=== PATIENT | male | born 1965 | race Caucasian/White ===

== ENCOUNTER → 2016-08-31 | Outpatient (CLI) | payer BC ==
[~2016-08-31] VITALS: Ht 172.7 cm; Wt 86.2 kg
[~2016-08-31] MED LIST: CARISOPRODOL 3350 MG PO; CELEBREX 200 M200 MG PO; CHANTIX1 EACH PO; CHANTIX1 MG PO; DEPO-TESTO200 MG/1 M IM; FAMVIR500 MG PO; FISH OIL 1,001000 M2 PO; MEDROLDOSEPACK PO; MULTI-DAY VITA1 EACH PO; NEURONTIN 300300 M1 PO; OMEPRAZOLE40 MG PO; PREDNISONE 5 MG5 MG PO; PRILOSEC20 MG PO
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
[2016-08-31 14:20] VITALS: BP 147/93
== END ==
LOC: PAIN 07:25
DX: M47.22 Other spondylosis with radiculopathy, cervical region (principal); M96.1 Postlaminectomy syndrome, not elsewhere classified; Z87.891 Personal history of nicotine dependence

== ENCOUNTER → 2016-09-10 | Outpatient (CLI) | payer BC | LOC: MRI 06:42 | DX: M54.10 Radiculopathy, site unspecified (principal); M54.2 Cervicalgia ==

== ENCOUNTER → 2016-09-13 | Outpatient (CLI) | payer BC ==
[~2016-09-13] VITALS: Ht 175.3 cm; Wt 87.0 kg
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
[2016-09-13 09:35] VITALS: BP 129/85
== END | disposition home or self-care (01) ==
LOC: PAIN 07:08
DX: M54.12 Radiculopathy, cervical region (principal); M47.892 Other spondylosis, cervical region; M54.16 Radiculopathy, lumbar region; Z98.890 Other specified postprocedural states; Z87.891 Personal history of nicotine dependence

== ENCOUNTER → 2016-10-25 | Outpatient (CLI) | payer BC ==
[~2016-10-25] VITALS: Ht 175.3 cm; Wt 88.2 kg
--- NOTE | ~2016-10-25 | HPC ---
[facility] [address] [address] PAIN MANAGEMENT CONSULTATION Name: SOL BOWDEN Room #: REG CLMarcela Heredia#: [id number] Admission: 10/25/16 Attend Phys: Lonny Velasco, DO Discharge: Date of : 67 Report #: [id number] THIS REPORT FOR: //name// CC: Alex Velasco The patient is a very pleasant 50-year-old gentleman I have known for some time. We have treated him for lumbar radiculopathy status post decompressive laminectomy, cervical spondylosis, and now status post anterior cervical disk fusion C3, C4, C5, and C6. The patient was given a lumbar epidural injection on 08/31/2016 and cervical epidural injection on 09/13/2016. Returns to the pain clinic today noting both injections afforded good relief, still has significant pain right at midline, C7-T1 area, radiation into the right shoulder and arm. Remarkably good range of motion of the cervical spine considering the four level fusion. He has tight bilateral neural foraminal stenosis at the inferior aspect of the fusion. Fortunately, there should be no movement at this level. Does have ongoing radicular symptoms. We talked about therapeutic options today. We would like to repeat cervical epidural injection under fluoroscopy, if he requires further surgical intervention, would likely be a posterior decompression at this inferior aspect. Hopefully, we can avoid surgery. 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 We talked about managing symptoms get to this time point. He takes Celebrex 200 mg, unfortunately daily use does significantly exacerbate gastroesophageal reflux, so suggest using on a nondaily basis. ASSESSMENT: Symptomatic cervical radiculopathy. PROCEDURE: Cervical epidural injection under fluoroscopy. PROCEDURE NOTE: After written and informed consent was obtained including risk of dural puncture, spinal cord trauma, paralysis and increased pain, the patient was taken to the fluoroscopy suite and placed in the prone position, with appropriate abdominal bolstering, neck was flexed, palms under the thighs. Skin was prepped with ChloraPrep. Sterile draping was applied. Skin wheal with 1% Xylocaine was raised. A 22-gauge 3-1/2 inch epidural Tuohy needle was placed via a midline approach at the C7-T1 interspace, advanced under biplanar fluoroscopy using continuous loss of resistance. With appropriate loss of resistance at the expected depth on lateral view, the glass loss of resistance syringe was disconnected. A low volume extension tubing was connected to the needle and a 5 mL syringe. Negative aspiration for cerebrospinal fluid or blood was noted. A 1 mL of Omnipaque was injected which showed spread within the epidural space on biplanar fluoroscopy. This was followed with 80 mg of triamcinolone plus 1 mL of 1.5% preservative Xylocaine. Needle was withdrawn to the interspinous ligament, 0.5 mL of Xylocaine was used to flush the needle. The needle was then completely withdrawn. The area was cleansed. Band-Aid was [address] [address] PAIN MANAGEMENT CONSULTATION Name: SOL BOWDEN Room #: REG CLI Yan#: [id number] Admission: 10/25/16 Attend Phys: Lonny Velasco, DO Discharge: Date of : 67 Report #: [id number] applied. The patient was allowed to move off the procedure table and ambulated to the recovery room, monitored for an appropriate period of time, discharged in good and stable condition. <ELECTRONICALLY SIGNED> By: Lonny Velasco DO 10/26/16 0655 [id number] [id number] Lonny Velasco DO /nt
[2016-10-25 14:32] VITALS: BP 145/95
== END | disposition home or self-care (01) ==
LOC: PAIN 07:23
DX: M54.12 Radiculopathy, cervical region (principal); M54.16 Radiculopathy, lumbar region

== ENCOUNTER → 2017-02-01 | Outpatient (CLI) | payer BC ==
[~2017-02-01] VITALS: Ht 175.3 cm; Wt 83.5 kg
[~2017-02-01] MED LIST changes: +PREDNISONE 5 MG5 M1 PO
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
[2017-02-01 13:44] VITALS: BP 137/94
== END ==
LOC: PAIN 06:54
DX: M54.16 Radiculopathy, lumbar region (principal); M19.90 Unspecified osteoarthritis, unspecified site; K51.90 Ulcerative colitis, unspecified, without complications; M47.22 Other spondylosis with radiculopathy, cervical region; I10 Essential (primary) hypertension; Z87.891 Personal history of nicotine dependence

== ENCOUNTER → 2017-03-08 | Outpatient (CLI) | payer BC ==
[~2017-03-08] VITALS: Ht 175.3 cm; Wt 84.6 kg
[2017-03-08 14:13] VITALS: BP 142/104
== END | disposition home or self-care (01) ==
LOC: PAIN 06:58
DX: M54.12 Radiculopathy, cervical region (principal); M54.9 Dorsalgia, unspecified; G89.29 Other chronic pain; M47.892 Other spondylosis, cervical region; K51.80 Other ulcerative colitis without complications; M54.16 Radiculopathy, lumbar region; Z98.890 Other specified postprocedural states; Z87.81 Personal history of (healed) traumatic fracture; Z87.891 Personal history of nicotine dependence

== ENCOUNTER → 2017-09-12 | Outpatient (CLI) | payer BC ==
[~2017-09-12] VITALS: Ht 175.3 cm; Wt 86.0 kg
[~2017-09-12] MED LIST changes: +APAP650 PO; +BUDESONIDE EC3 MG PO; +UCERIS9 MG PO; +VOLTAREN GEL 1100 G1 TOP; +VOLTAREN GEL 1100 G2 TOP
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
[2017-09-12 13:57] VITALS: BP 134/92
== END | disposition home or self-care (01) ==
LOC: PAIN 07:37
DX: M54.12 Radiculopathy, cervical region (principal); G89.29 Other chronic pain; M54.16 Radiculopathy, lumbar region; K51.80 Other ulcerative colitis without complications; Z98.890 Other specified postprocedural states; Z79.891 Long term (current) use of opiate analgesic; Z87.891 Personal history of nicotine dependence; Z79.899 Other long term (current) drug therapy

== ENCOUNTER → 2017-10-11 | Outpatient (CLI) | payer BC ==
[~2017-10-11] VITALS: Ht 175.3 cm; Wt 83.0 kg
--- NOTE | ~2017-10-11 | HPC ---
[facility] [place] [address] PAIN MANAGEMENT CONSULTATION Name: SOL BOWDEN Room #: REG Marcela Monet.#: [id number] Admission: 10/11/17 Attend Phys: Lonny Velasco, DO Discharge: Date of : 67 Report #: [id number] THIS REPORT FOR: //name// CC: Alex Velasco DATE OF SERVICE: 10/11/2017 The patient is a very pleasant 51-year-old gentleman, typically treated for cervical radiculopathy, status post ACDF at C4 through C7. I have done a cervical epidural injection at last visit, which did help with cervical and right arm radicular pain. We did order an MRI, which was accomplished 10/04/2017 (epidural injection was 09/12/2017). The MRI was compared to prior study from 11/2014. He notes post-surgical changes of the C4 through C7 ACDF with mild hardware-related susceptibility artifact. Some ridging with mild central stenosis noted. Cervical spondylosis with severe bilateral C5-C6 and C6-C7 neural foraminal narrowing. This was, however, similar to the prior exam. Returns to the Pain Clinic today. He has weaned off of prednisone. HE IS INTOLERANT OF NONSTEROIDAL ANTI-INFLAMMATORY MEDICATIONS (DUE TO GI ISSUES). Today, he is complaining bitterly of pain at the right first metacarpocarpal joint. He is very tender to palpation with range of motion. Otherwise, hand grasp is symmetric. Peripheral pulses are good. PHYSICAL EXAMINATION: Shows a 51-year-old gentleman, BMI is 27 kg/m2. Blood pressure is modestly elevated at 147/90, pulse 113, respirations 16. Subjective pain score is 5 on a VAS. He has not fallen in the last 3 months. He is not on opiate consent to treat contract. His score is low in the risk assessment tool. Functional assessment is 37/70. He was weaned off of prednisone. Has a prescription to take prednisone as needed. As detailed in prior dictations, I was loathe to continue patient on steroids, thought this has really been the only thing that has afforded any efficacy. We are striving to achieve the lowest dose and longest intervals without taking steroids. I have, however, in the past provided the patient a prescription for prednisone 5 mg to take when pain starts to become problematic. Hopefully, we can use earlier and shorter doses of prednisone (other health care providers have given him 60-80 mg daily of the "blast" of steroids and then a titration). We will try and keep his steroid dose as low as possible. Today, with ongoing pain in that right first metacarpocarpal joint, this significantly impacting his dominant hand function, we have elected to inject into the joint today. I did order bilateral hand x-rays. [facility] [address] [place] [address] PAIN MANAGEMENT CONSULTATION Name: SOL BOWDEN Room #: REG CLMarcela Heredia#: [id number] Admission: 10/11/17 Attend Phys: Lonny Velasco DO Discharge: Date of : 67 Report #: [id number] Reviewing those x-rays, they do show mild first metacarpocarpal degenerative joint disease of the right hand. Otherwise, remaining right hand and left hand are unremarkable. ASSESSMENT: 1. Cervical radiculopathy status post decompressive laminectomy, chronic pain syndrome, axial back pain requiring complex medication management. Recommendation: Continue prednisone low dose as previously described. He currently is not taking any prednisone. We will simply start that if and when axial back and/or cervical radicular symptoms start to become problematic. 2. Degenerative joint disease, right hand (first metacarpocarpal joint). Recommendation: (i). Voltaren gel topically. (ii). Right first metacarpocarpal joint injection. PROCEDURE: After written and informed consent was obtained including risk of infection, patient was placed in seated position with the right hand on a bolster. Wide prep with chlorhexidine was accomplished. Skin wheal with Xylocaine was raised. With traction on the right distal thumb, the first metacarpocarpal joint was identified. The radial artery was palpated. A 25-gauge needle was injected taking care to avoid the radial artery and the extensor ligaments. 4 mg of Decadron plus 1 mL of 0.5% preservative-free bupivacaine was injected into and around the joint. Needle was removed. The area was cleansed, Band-Aids applied. The patient was told to use ice the area today. Continue range of motion. He did note dramatic improvement of subjective pain. Follow up simply as needed. <ELECTRONICALLY SIGNED> By: Lonny Velasco DO 10/16/17 0725 1547 [id number] Lonny Velasco DO /nt
[2017-10-11 13:34] VITALS: BP 147/90
== END ==
LOC: PAIN 07:24
DX: M54.12 Radiculopathy, cervical region (principal); M96.1 Postlaminectomy syndrome, not elsewhere classified; M54.5 Low back pain; M19.90 Unspecified osteoarthritis, unspecified site; I10 Essential (primary) hypertension; Z79.899 Other long term (current) drug therapy; Z87.891 Personal history of nicotine dependence

== ENCOUNTER → 2017-11-07 | Outpatient (CLI) | payer BC ==
[~2017-11-07] VITALS: Ht 175.3 cm; Wt 83.6 kg
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
[2017-11-07 14:11] VITALS: BP 143/94
== END | disposition home or self-care (01) ==
LOC: PAIN 07:09
DX: M79.1 Myalgia (principal); Z79.899 Other long term (current) drug therapy; Z98.890 Other specified postprocedural states; M19.041 Primary osteoarthritis, right hand; M54.12 Radiculopathy, cervical region; M54.16 Radiculopathy, lumbar region; Z87.891 Personal history of nicotine dependence

== ENCOUNTER → 2017-12-13 | Outpatient (CLI) | payer BC ==
[~2017-12-13] VITALS: Ht 175.3 cm; Wt 83.5 kg
--- NOTE | ~2017-12-13 | HPC ---
[facility] [place] [address] [place] [address] PAIN MANAGEMENT CONSULTATION Name: SOL BOWDEN Room #: REG COSME Heredia#: [id number] Admission: 12/13/17 Attend Phys: Lonny Velasco DO Discharge: Date of : 67 Report #: [id number] THIS REPORT FOR: //name// CC: Alex Velasco DATE OF SERVICE: 12/13/2017 The patient is a very pleasant 51-year-old gentleman long known to pain clinic, being treated for cervical radiculopathy status post ACDF, history of lumbar radiculopathy, DJD affecting right hand (first proximal carpometacarpal joint), history of cervical spondylosis, myofascial pain. Last visit 11/07/2017, we continued topical Voltaren gel, right hand. We did a trigger point injection in the right deltoid. Returns to pain clinic today. Notes he has had significant strain in the right forearm. He has a fairly physical job. He now has swelling in the right forearm about midway down on the dorsal aspect of the wrist. Pain is exacerbated with lower extremity extension. There is some palpable crepitance with flexion and extension of the wrist. Otherwise, he has significant tenderness in the superior left cervical facet (above the ACDF). This appears to be recurrence of right cervical spondylotic pain. We had done cervical facet joint injections back in 11/2015. The patient has a history of Crohn's disease, had been on high dose prednisone through the summer up to 40 mg a day with excellent improvement of his multiple somatic aches and pains. He has weaned off of the steroids over the winter and now with acute injury in the right forearm, we have elected to trial simply topical Voltaren gel trying to avoid more steroid use. He is intolerant of NSAID due to GI issues. PHYSICAL EXAMINATION: Shows a 51-year-old gentleman, BMI is 27.2 kilograms per meter squared. Blood pressure is elevated today 147/115, pulse 85, respirations 16. Cervical range of motion is limited, discrete tender area over the superior cervical facet on the left (C2-C3). Pain reproduced in the posterior occiput ear and upper shoulder. Upper extremity strength is symmetric, again swelling in the right forearm. Pain exacerbated with right wrist extension. Lower extremity strength is symmetric. Diffuse axial back pain. ASSESSMENT #1: Symptomatic acute strain, right forearm extensor. RECOMMENDATION: We will provide a prescription for Voltaren gel to be used topically. If this does not afford good relief in 1-2 weeks, have him follow up with Orthopedics. [address] [address] PAIN MANAGEMENT CONSULTATION Name: SOL BOWDEN Room #: REG [facility] Yan#: [id number] Admission: 12/13/17 Attend Phys: Lonny Velasco DO Discharge: Date of : 67 Report #: [id number] ASSESSMENT #2. Acute exacerbation of cervical spondylosis. RECOMMENDATION: 1. Left C2-C3 cervical facet joint injection under fluoroscopy today. 2. Follow up simply as needed. PROCEDURE: Left cervical facet joint (C2-C3) injection under fluoroscopy. PROCEDURE NOTE: After written informed consent was obtained, the patient was taken to fluoroscopy suite, placed in prone position. After sterile prep and drape, skin wheal was raised. A 22-gauge stylet needle was placed to contact the posterior aspect of the left C2-C3 cervical facet. AP projection showed good needle placement in the middle of the lateral mass. Lateral projections showed good needle placement posterior aspect of the joint. Negative aspiration was accomplished. A 6 mg of Decadron plus 1 mL of 0.5% preservative-free bupivacaine was injected into and around the joint. Needle was removed. Area was cleansed. Band-Aid applied. Fluoroscopy time was under 20 seconds. The patient monitored for an appropriate period of time, discharged in good and stable condition, noting incremental improvement in baseline pain. <ELECTRONICALLY SIGNED> By: Lonny Velasco DO 12/14/17 0954 1211 1944 Lonny Velasco DO /nt
[2017-12-13 08:03] VITALS: BP 147/115
== END | disposition home or self-care (01) ==
LOC: PAIN 07:02
DX: M47.812 Spondylosis without myelopathy or radiculopathy, cervical region (principal); G89.29 Other chronic pain; M54.16 Radiculopathy, lumbar region; M19.041 Primary osteoarthritis, right hand; K50.90 Crohn's disease, unspecified, without complications; Z98.890 Other specified postprocedural states; Z87.891 Personal history of nicotine dependence; Z79.899 Other long term (current) drug therapy

== ENCOUNTER → 2018-02-17 | Outpatient (CLI) | payer BC ==
[~2018-02-17] VITALS: Ht 175.3 cm; Wt 87.1 kg
[~2018-02-17] MED LIST changes: -BUDESONIDE EC3 MG PO
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
[2018-02-17 14:36] VITALS: BP 144/96
== END | disposition home or self-care (01) ==
LOC: PAIN 06:47
DX: M54.16 Radiculopathy, lumbar region (principal); G89.29 Other chronic pain; M54.9 Dorsalgia, unspecified; K51.90 Ulcerative colitis, unspecified, without complications; Z98.890 Other specified postprocedural states; Z79.899 Other long term (current) drug therapy; Z87.891 Personal history of nicotine dependence

== ENCOUNTER → 2018-03-03 | Outpatient (CLI) | payer BC ==
[~2018-03-03] VITALS: Ht 175.3 cm; Wt 84.5 kg
[~2018-03-03] MED LIST changes: +BUDESONIDE EC3 MG PO
--- NOTE | ~2018-03-03 | HPC ---
[facility] [place] [address] [place] [address] PAIN MANAGEMENT CONSULTATION Name: SOL BOWDEN Room #: REG Marcela Heredia#: [id number] Admission: 03/03/18 Attend Phys: Lonny Velasco DO Discharge: Date of : 67 Report #: [id number] THIS REPORT FOR: //name// CC: Alex Velasco DATE OF SERVICE: 03/03/2018 HISTORY OF PRESENT ILLNESS: The patient is a very pleasant 52-year-old gentleman well known to the pain clinic, being treated for multiple pain generators including history of 2 ACDF (C4-C5 and C6-C7), history of T11 compression fracture, history of lumbar decompressive laminectomy and a longstanding history of ulcerative colitis. The patient was last seen in the pain clinic on 02/17/2018. The patient is becoming more and more disabled over time. Ultimately at last visit, we had a long and heartfelt conversation about applying for disability. While the patient remains very adamant that he loves work and would like to continue working, I feel it is in his better interest to seek medical disability. His job involves cervical extension and he certainly develops some weakness in the upper extremities due to this continued cervical extension. The patient returns to the pain clinic today. He does have surgery scheduled for his right hand. Apparently, he is having an arthrocentesis of the thumb joint. Unfortunately, he has been on budesonide for some time now for his Crohn's. On the positive side, this does make all of his joint pain a great deal better; on the negative side, afraid that it may interfere with his healing ability following the surgery. We talked today about trying to wean off all agents. He has been off prednisone for a while. He typically alternates budesonide and prednisone. Currently, he is taking 9 mg budesonide every other day. I have taken the liberty of offering the patient a 3 mg budesonide tablet to take it daily for a short course and then every other day. Hopefully, we can gradually wean down prior to his surgery. PHYSICAL EXAMINATION: GENERAL: Otherwise, remains unchanged, pleasant 52-year-old gentleman, BMI is 27.5 kilograms per meter squared. VITAL SIGNS: Stable as noted in the EMR. MUSCULOSKELETAL: Cervical range of motion is limited. Upper extremity strength is robust given that he is a fairly muscular gentleman, but it is subjectively diminishing and the right hand strength is actually fairly obviously diminished due to pain. Subjective pain score is 4 on a VAS. Functional assessment is fairly high, rating at 36/70. ASSESSMENT: Chronic pain syndrome requiring complex medication management in a patient status post multiple comorbidities including Crohn disease, status post [address] [address] PAIN MANAGEMENT CONSULTATION Name: KALSOL Lilian Room #: REG COSME Heredia#: [id number] Admission: 03/03/18 Attend Phys: Lonny Velasco DO Discharge: Date of : 67 Report #: [id number] anterior cervical diskectomy and fusion x 2, lumbar decompressive laminectomy, T11 compression fracture, bilateral hip fractures and sacral fracture. RECOMMENDATION: Budesonide as noted above. Did encourage patient to continue with disability work up. As noted, I do feel that at this point he is at maximum medical improvement and still is unable to continue meaningful work in his profession. Follow up simply as needed. <ELECTRONICALLY SIGNED> By: Lonny Velasco DO 03/05/18 0734 1446 1911 Lonny Velasco DO /nt
[2018-03-03 11:06] VITALS: BP 124/99
== END ==
LOC: PAIN 02-27 07:25
DX: M54.2 Cervicalgia (principal); G89.4 Chronic pain syndrome; K50.90 Crohn's disease, unspecified, without complications; Z79.899 Other long term (current) drug therapy